=== PATIENT | female | born 1950 | race Caucasian/White ===

== ENCOUNTER → 2016-04-20 | Outpatient (CLI) | payer OTHER ==
--- NOTE | 2016-04-21 11:43 | MM ---
Reason for exam: screening (asymptomatic). Last mammogram was performed 1 year ago. History: Patient is postmenopausal and has history of other cancer at age 57. Family history of breast cancer in maternal grandmother, breast cancer in maternal cousin, and breast cancer in paternal grandmother. Benign stereotactic core biopsy of the right breast, June 22, 2001. Benign core biopsy of the right breast, 1969. Benign excisional biopsy of the right breast, 1969. Took estrogen for 1 year. Physical Findings: A clinical breast exam by your physician is recommended on an annual basis and results should be correlated with mammographic findings. MG 3D Screening Mammo W/Cad Bilateral CC and MLO view(s) were taken. Prior study comparison: April 20, 2015, bilateral MG screening mammo w CAD. October 18, 2013, bilateral MG screening mammo w CAD. The breast tissue is heterogeneously dense. This may lower the sensitivity of mammography. Previous mammotome biopsy in the right breast. No significant changes when compared with prior studies. ASSESSMENT: Benign, BI-RAD 2 RECOMMENDATION: Routine screening mammogram of both breasts in 1 year.
== END | disposition home or self-care (01) ==
LOC: RADMAMWWP 16:38
PROVIDERS: ATTEND Family Medicine
DX: Z12.31 Encounter for screening mammogram for malignant neoplasm of breast (principal)
CPT/HCPCS: 77063; G0202

== ENCOUNTER → 2017-05-22 | Outpatient (CLI) | payer MEDICARE, OTHER ==
--- NOTE | 2017-05-23 10:41 | MM ---
Reason for exam: screening (asymptomatic). Last mammogram was performed 1 year and 1 month ago. History: Patient is postmenopausal and has history of other cancer at age 57. Family history of breast cancer in maternal grandmother, breast cancer in maternal cousin, and breast cancer in paternal grandmother. Benign stereotactic core biopsy of the right breast, June 22, 2001. Benign core biopsy of the right breast, 1969. Benign excisional biopsy of the right breast, 1969. Took estrogen for 1 year. Physical Findings: A clinical breast exam by your physician is recommended on an annual basis and results should be correlated with mammographic findings. MG Screening Mammo w CAD Bilateral CC and MLO view(s) were taken. Prior study comparison: April 20, 2016, bilateral MG 3d screening mammo w/cad. April 20, 2015, bilateral MG screening mammo w CAD. The breast tissue is heterogeneously dense. This may lower the sensitivity of mammography. Focal asymmetry upper outer left breast 4 cm from nipple. This finding is changed when compared with previous exams. ASSESSMENT: Incomplete: need additional imaging evaluation, BI-RAD 0 RECOMMENDATION: Special view mammogram of the left breast. If lesion persists on supplemental views, image directed ultrasound is recommended. [facility] will attempt to contact patient to return for supplemental views and ultrasound if indicated.
== END | disposition home or self-care (01) ==
LOC: RADMAMWWP 11:01
PROVIDERS: ATTEND Family Medicine
DX: Z12.31 Encounter for screening mammogram for malignant neoplasm of breast (principal)
CPT/HCPCS: 77067

== ENCOUNTER → 2017-05-30 | Outpatient (CLI) | payer MEDICARE, OTHER ==
--- NOTE | 2017-05-30 10:21 | MM ---
Reason for exam: additional evaluation requested from abnormal screening. Last mammogram was performed less than 1 month ago. History: Patient is postmenopausal and has history of other cancer at age 57. Family history of breast cancer in maternal grandmother, breast cancer in maternal cousin, and breast cancer in paternal grandmother. Benign stereotactic core biopsy of the right breast, June 22, 2001. Benign core biopsy of the right breast, 1969. Benign excisional biopsy of the right breast, 1969. Took estrogen for 1 year. Physical Findings: Nurse did not find any significant physical abnormalities on exam. MG 3D Work Up W/Cad LT Spot compression CC, spot compression MLO, and ML view(s) were taken of the left breast. Prior study comparison: May 22, 2017, bilateral MG screening mammo w CAD. April 20, 2016, bilateral MG 3d screening mammo w/cad. Asymmetric breast tissue left upper outer aspect, stable. There is no discrete abnormality persists. These results were verbally communicated with the patient and result sheet given to the patient on 05/30/17. ASSESSMENT: Benign, BI-RAD 2 RECOMMENDATION: Return to routine screening mammogram schedule for both breasts.
== END | disposition home or self-care (01) ==
LOC: RADMAMWWP 09:23
PROVIDERS: ATTEND Family Medicine
DX: R92.8 Other abnormal and inconclusive findings on diagnostic imaging of breast (principal)
CPT/HCPCS: 77065; G0279

== ENCOUNTER → 2018-07-03 | Outpatient (CLI) | payer MEDICARE, OTHER ==
--- NOTE | 2018-07-03 14:32 | MM ---
Reason for exam: screening (asymptomatic). Last mammogram was performed 1 year and 1 month ago. History: Patient is postmenopausal and has history of other cancer at age 57. Family history of breast cancer in maternal grandmother, breast cancer in maternal cousin, and breast cancer in paternal grandmother. Benign stereotactic core biopsy of the right breast, June 22, 2001. Benign core biopsy of the right breast, 1969. Benign excisional biopsy of the right breast, 1969. Took estrogen for 1 year. Physical Findings: A clinical breast exam by your physician is recommended on an annual basis and results should be correlated with mammographic findings. MG 3D Screening Mammo W/Cad Bilateral CC and MLO view(s) were taken. Prior study comparison: May 30, 2017, left breast MG 3d work up w/cad LT. May 22, 2017, bilateral MG screening mammo w CAD. The breast tissue is heterogeneously dense. This may lower the sensitivity of mammography. No suspicious abnormality. Post biopsy change on the right with biopsy marker noted. No significant changes when compared with prior studies. ASSESSMENT: Benign, BI-RAD 2 RECOMMENDATION: Routine screening mammogram of both breasts in 1 year.
== END | disposition home or self-care (01) ==
LOC: RADMAMWWP 06:44
PROVIDERS: ATTEND Family Medicine
DX: Z12.31 Encounter for screening mammogram for malignant neoplasm of breast (principal)
CPT/HCPCS: 77063; 77067

== ENCOUNTER 2019-06-25 21:09 | Inpatient (IN) | payer MEDICARE, OTHER ==
[2019-06-25] MEDS ORDERED: ASPIRIN 81 MG PO STA (21:59)
[2019-06-25] MEDS ORDERED: NITROGLYCERIN SL TABS 0.4 MG TAB SUBLINGUAL PRN (21:59)
--- NOTE | 2019-06-25 22:05 | ED ---
General Adult HPI - General Chief complaint: Shortness of Breath Stated complaint: SOB, fatigue Time Seen by Provider: 06/25/19 21:11 Source: patient, RN/MD, EMS, RN notes reviewed, old records reviewed (Reviewed reports and records from [facility]) Mode of arrival: EMS Limitations: no limitations - History of Present Illness Initial comments: Patient is a pleasant [age]-year-old female presenting to emergency Department as a transfer from [facility]. Patient has had exertional dyspnea over the past 1-2 months. Patient is symptom-free at rest. Patient has mild chest tightness associated with her exertional dyspnea. Patient states she started becoming short of breath as soon as 10 feet. Patient states she becomes very fatigued and achy. No history of similar symptoms previously. Patient was diagnosed with pneumonia around a month ago however no improvement with treatment. - Related Data Allergies Allergy/AdvReac Type Severity Reaction Status Date / Time No Known Allergies Allergy Verified 06/25/19 21:21 Review of Systems ROS Statement: Those systems with pertinent positive or pertinent negative responses have been documented in the HPI. ROS Other: All systems not noted in ROS Statement are negative. Constitutional: Denies: fever Eyes: Denies: eye pain ENT: Denies: ear pain Respiratory: Reports: as per HPI, dyspnea. Denies: cough Cardiovascular: Reports: as per HPI, chest pain Endocrine: Reports: fatigue Gastrointestinal: Denies: abdominal pain Genitourinary: Denies: dysuria Musculoskeletal: Denies: back pain Skin: Denies: rash Neurological: Denies: weakness Past Medical History Past Medical History: Hyperlipidemia, Thyroid Disorder History of Any Multi-Drug Resistant Organisms: None Reported Past Surgical History: Joint Replacement, Orthopedic Surgery Additional Past Surgical History / Comment(s): cervical fusions, total right knee replacement. Past Psychological History: No Psychological Hx Reported Smoking Status: Never smoker Past Alcohol Use History: Occasional Past Drug Use History: None Reported General Exam Limitations: no limitations General appearance: alert, in no apparent distress Head exam: Present: normocephalic Eye exam: Present: normal appearance ENT exam: Present: normal oropharynx Neck exam: Present: normal inspection Respiratory exam: Present: normal lung sounds bilaterally. Absent: respiratory distress, wheezes, rales, rhonchi, stridor, chest wall tenderness Cardiovascular Exam: Present: regular rate, normal rhythm Expanded Peripheral pulses: 2+: Radial (R), Radial (L), Dorsalis Pedis (R), Dorsalis Pedis (L) GI/Abdominal exam: Present: soft. Absent: distended, tenderness Extremities exam: Present: normal inspection. Absent: pedal edema, calf tenderness Neurological exam: Present: alert Psychiatric exam: Present: normal affect, normal mood Skin exam: Present: normal color Course Vital Signs 06/25/19 21:11 Temperature 98.4 F Pulse Rate 67 Respiratory 17 Rate Blood Pressure 149/90 O2 Sat by Pulse 98 Oximetry Medical Decision Making - Medical Decision Making Patient is made aware of results and plan. Case discussed with practitioner Yesi covered with Dr. Marinelli, covering for Dr. Naik, who admits for Dr. Anne. He will admit. Consult placed for cardiology and pulmonary. Echo ordered. Disposition Clinical Impression: Exertional dyspnea Disposition: ADMITTED IP TO THIS HOSP Is patient prescribed a controlled substance at d/c from ED?: No Referrals: Jeff Anne MD [Primary Care Provider] - 1-2 days Decision Time: 22:05
[2019-06-26 06:35] LABS: Cholesterol 156 mg/dL (<200); HDL Cholesterol 53 mg/dL (40-60); LDL Cholesterol,Calculated 90 mg/dL (0-99); Triglycerides 65 mg/dL (<150)
[2019-06-26] MEDS: ASPIRIN 325 MG TAB PO SCH (09:35)
--- NOTE | 2019-06-26 11:46 | P.CNPUL ---
History of Present Illness Consult date: 06/26/19 Reason for consult: dyspnea History of present illness: This is a 69-year-old female patient got transferred from [facility] cause of ongoing shortness of breath is been going on since April 2019. The patient has multiple complaints in addition to shortness of breath. She has limited cough.Can sputum production. She is feeling weak and fatigued and tired. He is having some occasional dizziness and lightheadedness. She also having headaches. Denied having any angina. No pleurisy. No hemoptysis. No nausea. No vomiting. No fever or chills. She was in the hospital back in April 2019 which she was checked for covid 19 and the results came back negative. The patient lives with her and she is considered to be a low- risk for this type of infection. A repeat study was done. She has history of hypothyroidism, hyperlipidemia, hypertension, chronic fatigue, depression, prolapsed bladder, hyperlipidemia, and she is a lifetime nonsmoker. No previous history of DVT. No previous history of pulmonary embolism. Her current investigation included a CRP that was less than 5, white cell count of 9.1, hemoglobin of 14.2, platelets of 276, CPK of 68, sodium of 140, potassium of 4.8, serum bicarb of 25, BUN of 15 and a creatinine of 0.9. Her LFTs are within normal limits. Coagulation profile is within normal limits. Lactic acid level at the time of admission was 2.3. ProBNP level was 121. D- dimer was 1.27 and based on that the patient was given a CT angiogram that showed no evidence of any central pulmonary embolism. Subsegmental branches were not adequately visualized. Lung parenchyma was within normal limits. Chest x-ray was within normal limits. The patient's EKG is also within normal limits. Review of Systems Constitutional: Reports fatigue, Reports weakness Eyes: denies as per HPI, denies blurred vision, denies bulging eye, denies decreased vision, denies diplopia, denies discharge, denies dry eye, denies irritation, denies itching, denies pain, denies photophobia, denies loss of peripheral vision, denies loss of vision, denies tunnel vision/blind spots Ears: deny: decreased hearing, ear discharge, earache, tinnitus Ears, nose, mouth and throat: Denies headache, Denies sore throat Breasts: right: as per HPI Cardiovascular: Reports decreased exercise tolerance, Reports dyspnea on exertion Respiratory: Reports cough, Reports dyspnea Gastrointestinal: Reports as per HPI Genitourinary: Reports as per HPI Menstruation: Reports as per HPI Musculoskeletal: Reports as per HPI Musculoskeletal: absent: ankle pain, ankle stiffness, ankle swelling Integumentary: Reports as per HPI Neurological: Reports as per HPI Psychiatric: Reports as per HPI Endocrine: Reports as per HPI Hematologic/Lymphatic: Reports as per HPI Allergic/Immunologic: Reports as per HPI Past Medical History Past Medical History: Hyperlipidemia, Thyroid Disorder Additional Past Medical History / Comment(s): Past medical history positive for chronic back pain, hypothyroidism, hyperlipidemia, hypertension, chronic fatigue, depression, bladder prolapse History of Any Multi-Drug Resistant Organisms: None Reported Past Surgical History: Appendectomy, Joint Replacement, Orthopedic Surgery, Tonsillectomy Additional Past Surgical History / Comment(s): cervical fusions, total right knee replacement. Past Psychological History: No Psychological Hx Reported Smoking Status: Never smoker Past Alcohol Use History: Occasional Past Drug Use History: None Reported - Past Family History Father Additional Family Medical History / Comment(s): at 90 Mother Family Medical History: Hypertension Additional Family Medical History / Comment(s): at 41 Medications and Allergies Home Medications Medication Instructions Recorded Confirmed Type Albuterol Inhaler [Ventolin Hfa 1 puff INHALATION RT-Q4H PRN 06/25/19 06/25/19 History Inhaler] Atorvastatin [Lipitor] 20 mg PO DAILY 06/25/19 06/25/19 History Eye [place] Advantage W/Vitamin D3 1 cap PO DAILY 06/25/19 06/25/19 History Lidocaine 5% Patch [Lidoderm] 1 patch TOPICAL DAILY PRN 06/25/19 06/25/19 History Omeprazole 20 mg PO DAILY 06/25/19 06/25/19 History Oxybutynin ER [Ditropan Xl] 10 mg PO HS 06/25/19 06/25/19 History Thyroid,Pork [Skiver Counter Thyroid 120] 120 mg PO DAILY 06/25/19 06/25/19 History Allergies Allergy/AdvReac Type Severity Reaction Status Date / Time prednisone AdvReac PANCREATITI Verified 06/25/19 22:17 S STEROIDS AdvReac PANCREATITI Uncoded 06/25/19 22:17 S Physical Exam Vitals: Vital Signs Temp Pulse Pulse Resp BP BP Pulse Ox 06/26/19 08:00 98 F 84 18 98/57 98 06/26/19 04:00 68 18 111/65 97 06/26/19 00:11 97.6 F 06/26/19 00:06 75 18 127/74 97 06/26/19 00:00 97.9 F 71 18 144/69 97 06/25/19 23:00 97.9 F 06/25/19 22:00 85 16 138/94 96 06/25/19 21:11 98.4 F 67 17 149/90 98 Intake and Output 06/25/19 06/26/19 06/26/19 22:59 06:59 14:59 Other: Voiding Method Toilet Toilet # Voids 1 Weight 99.79 kg 99.79 kg The patient appeared well nourished and normally developed. Vital signs as documented. Head exam is unremarkable. No scleral icterus or corneal arcus noted. Neck is without jugular venous distension, thyromegaly, or carotid bruits. Carotid upstrokes are brisk bilaterally. Lungs are clear to auscultation and percussion. Cardiac exam reveals the PMI to be normally sized and situated. Rhythm is regular. First and second heart sounds normal. No murmurs, rubs or gallops. Abdominal exam reveals normal bowel sounds, no masses, no organomegaly and no aortic enlargement. Extremities are nonedematous and both femoral and pedal pulses are normal.Examination of the skin revealed no evidence of significant rashes, suspicious appearing nevi or other concerning lesions. Neurologically awake and alert and there is no focal neurological deficit. Results - Diagnostic Findings Chest x-ray: image reviewed CT scan - chest: image reviewed Assessment and Plan Plan: 1 exertional dyspnea and addition to a combination of other nonspecific symptoms. The exact etiology is not clear. D-dimer was slightly elevated. Nevertheless the computed tomography scan of the chest showed no evidence of any pulmonary embolism at least in the central pulmonary artery branches and the rest of the lung parenchyma was within normal limits. EKG, cardiac enzymes and the rest of the blood work is also within normal limits. Covid 19 evaluation that was done back in April 2019 was within normal limits. Awaiting a repeat evaluation. 2 hypothyroidism 3 hyperlipidemia 4 hypertension 5 chronic fatigue 6 chronic back pain Plan Check Dopplers of the lower extremities Check thyroid function tests Echocardiogram Cardiology consultation We'll follow
--- NOTE | 2019-06-26 12:10 | CONS ---
CONSULTATION CHIEF COMPLAINT: Shortness of breath. Zee is a 69-year-old lady with history of hypothyroidism and dyslipidemia who presented to hospital complaining of shortness of breath for the past 1 to 2 months. IT comes on with exertion and is associated with mild chest tightness. Recently, she has been becoming short of breath even with much slower activity. At the time of my evaluation this morning, she appears comfortable at rest and is free of symptoms. Her lipids are well controlled. I do not have any other labs here. An EKG shows sinus rhythm with nonspecific ST-T wave changes. PAST MEDICAL HISTORY: Significant for hypertension, dyslipidemia, hypothyroidism. MEDICATIONS: Include Synthroid, Ditropan, , Lipitor and albuterol. Allergic to PREDNISONE and STEROIDS. FAMILY HISTORY: Negative for premature coronary artery disease. SOCIAL HISTORY: Negative for smoking, EtOH abuse or drug abuse. REVIEW OF SYSTEMS: HEENT: Unremarkable. CARDIAC: As described above. RESPIRATORY: As described above. GI: Negative. GENITOURINARY: Negative. ALLERGY/IMMUNOLOGY: Negative. SKIN: Negative. MUSCULOSKELETAL: Significant for arthritis. PSYCHOSOCIAL: Negative: DERMATOLOGICAL Negative. ONCOLOGICAL: Negative. COLLET DRILLER: Negative. Rest of the system review is not relevant. PHYSICAL EXAM: Comfortable at rest. Vital signs are stable. There is no jugular venous distention. Carotid upstroke is normal. There is no bruit. Chest exam reveals good air entry bilaterally. Heart exam reveals first and second heart sounds. No gallop. No murmur. No rub. Abdomen is soft, nontender. Exam of extremities did not reveal any edema. Peripheral pulses are felt. ASSESSMENT: 1. Shortness of breath, rule out cardiac causes. 2. Dyslipidemia. PLAN: So far, patient is pain free, hemodynamically stable. EKG does not reveal acute ischemic changes. I will thus obtain a stress test on her tomorrow. If this is abnormal, she will need a cardiac catheterization, If not, she will be discharged home. MMODL / IJN: [id number] /
[2019-06-26] MEDS ORDERED: REGADENOSON 0.4 MG/5 ML SYRINGE IV ONE (13:20)
[2019-06-26] MEDS ORDERED: AMINOPHYLLINE 500 MG/20 ML VIAL IV ONE (13:20)
--- NOTE | 2019-06-26 15:49 | NM ---
EXAMINATION TYPE: NM stress lexiscan cardiolite DATE OF EXAM: 06/26/2019 COMPARISON: NONE HISTORY: Chest pain TECHNIQUE: After the intravenous administration of 9.7 mCi Tc 99m Sestamibi - Cardiolite resting SPE CT images acquired 60 minutes post injection. The patient received 0.4mg Lexiscan, 24.3 mCi Tc 99m Sestamibi - Stress images obtained [address] injection FINDINGS: No fixed or reversible perfusion defects are evident. Gated wall motion is normal. Ejection fraction is 63%. On Polar maps there is a defect. However, this is likely related to some epigastric artifact present. The [id number]. IMPRESSION: 1. No definite stress-induced ischemic change. Correlate with EKG changes.
[2019-06-26 16:20] VITALS: TEMP 98
--- NOTE | 2019-06-26 16:30 | US ---
EXAMINATION TYPE: US venous doppler duplex LE DATE OF EXAM: 06/26/2019 3:56 PM COMPARISON: NONE CLINICAL HISTORY: rule out dvt. elevated D-Dimer, SOB SIDE PERFORMED: bilateral TECHNIQUE: The lower extremity deep venous system is examined utilizing real time linear array sonog ella with graded compression, doppler sonography and color-flow sonography. VESSELS IMAGED: External Iliac Vein (EIV) Common Femoral Vein Deep Femoral Vein Greater Saphenous Vein * Femoral Vein Popliteal Vein Small Saphenous Vein * Proximal Calf Veins (* superficial vessels) Right Leg: No evidence of DVT Left Leg: No evidence of DVT IMPRESSION: 1. Bilateral lower extremity ultrasound negative for deep venous thrombosis.
[2019-06-26] MEDS ORDERED: LIDOCAINE 5% PATCH TOPICAL PRN (20:18)
[2019-06-26] MEDS ORDERED: ALBUTEROL NEBULIZED 2.5 MG/3 ML INHALATION PRN (20:18)
--- NOTE | 2019-06-26 20:34 | P.HPIM ---
History of Present Illness H&P Date: 06/26/19 Chief Complaint: Exertional short of breath Patient is a 69-year-old male with a known history of hyperlipidemia, hypothyroidism, osteoarthritis and no prior history of smoking initially presented to [facility] with complaints of shortness of breath and exer tional dyspnea not getting better for the past 2 months. Patient states that she was diagnosed with bronchitis about 2 months ago and was placed on antibiotics and steroid course. Patient symptoms has not been getting better. COVID 19 test was done which was negative. Patient was again placed on antibiotic course for possible pneumonia in the form of Levaquin. Patient has not been going out during the pandemic. Since her symptoms not getting better she presented initially to [facility]. Patient had chest x-ray done which was negative. D-dimer was elevated and CT angiogram was done which showed no evidence of pulmonary embolism. Patient was also found to have elevated lactic acid level which is improved. Patient does have cough without production of sputum. Patient feels generally weak and tired. No complaints of headache. Occasional dizziness. No complaints of chest pain. No hematemesis or melena. Denied any dysuria or hematuria. No nausea vomiting or abdominal pain.Denied any leg swelling. No recent travel or sick contacts. Laboratory data reviewed from [facility] showed WBC count 9.1, hemoglobin 14.2, platelets 276, CPK 68, sodium 140, potassium 4.6, bicarb 25 BUN 15 and creatinine 0.9 LFTs within normal limits. CRP was not elevated less than 5 lactic acid was 2.3 proBNP 121 and d-dimer 1.27 EKG showed normal sinus rhythm. Patient was transferred to [facility] for further evaluation by pulmonary and cardiology. Review of Systems Constitutional: Patient denies any fever or chills . No generalized weakness or weight loss. Abdomen: Patient denied nausea vomiting and diarrhea and abdominal pain. Cardiovascular: Patient denies any chest pain or short of breath no palpitations.Exertional short of breath. Respiratory: patient denied any cough is from production. No shortness of breath Neurologic: Patient denied any numbness or tingling. Musculoskeletal: Patient denies any complaints of joint swelling or deformity. Skin: Negative Psychiatric: Negative Endocrine: No heat or cold intolerance. No recent weight gain. Genitourinary: No dysuria or hematuria. All other 14 point ROS negative except the above Past Medical History Past Medical History: Hyperlipidemia, Thyroid Disorder History of Any Multi-Drug Resistant Organisms: None Reported Past Surgical History: Joint Replacement, Orthopedic Surgery Additional Past Surgical History / Comment(s): cervical fusions, total right knee replacement. Past Psychological History: No Psychological Hx Reported Smoking Status: Never smoker Past Alcohol Use History: Occasional Past Drug Use History: None Reported - Past Family History Father Additional Family Medical History / Comment(s): at 90 Mother Family Medical History: Hypertension Additional Family Medical History / Comment(s): at 41 Medications and Allergies Home Medications Medication Instructions Recorded Confirmed Type Albuterol Inhaler [Ventolin Hfa 1 puff INHALATION RT-Q4H PRN 06/25/19 06/25/19 History Inhaler] Atorvastatin [Lipitor] 20 mg PO DAILY 06/25/19 06/25/19 History [place] Advantage W/Vitamin D3 1 cap PO DAILY 06/25/19 06/25/19 History Lidocaine 5% Patch [Lidoderm] 1 patch TOPICAL DAILY PRN 06/25/19 06/25/19 History Omeprazole 20 mg PO DAILY 06/25/19 06/25/19 History Oxybutynin ER [Ditropan Xl] 10 mg PO HS 06/25/19 06/25/19 History Thyroid,Pork [Halver Machine Operator Thyroid 120] 120 mg PO DAILY 06/25/19 06/25/19 History Allergies Allergy/AdvReac Type Severity Reaction Status Date / Time prednisone AdvReac PANCREATITI Verified 06/25/19 22:17 S STEROIDS AdvReac PANCREATITI Uncoded 06/25/19 22:17 S Physical Exam Vitals: Vital Signs Temp Pulse Pulse Resp BP BP Pulse Ox 06/26/19 08:00 98 F 84 18 98/57 98 06/26/19 04:00 68 18 111/65 97 06/26/19 00:11 97.6 F 06/26/19 00:06 75 18 127/74 97 06/26/19 00:00 97.9 F 71 18 144/69 97 06/25/19 23:00 97.9 F 06/25/19 22:00 85 16 138/94 96 06/25/19 21:11 98.4 F 67 17 149/90 98 Intake and Output 06/25/19 06/26/19 06/26/19 22:59 06:59 14:59 Other: Voiding Method Toilet Toilet # Voids 1 Weight 99.79 kg 99.79 kg PHYSICAL EXAMINATION: Patient is lying in the bed comfortably, no acute distress, awake alert and oriented.. HEENT: Normocephalic. Neck is supple. Pupils reactive. Nostrils clear. Oral cavity is moist. Ears reveal no drainage. Neck reveals no JVD, carotid bruits, or thyromegaly. CHEST EXAMINATION: Trachea is central. Symmetrical expansion. Lung mccurdy clear to auscultation and percussion. CARDIAC: Normal S1, S2 with no gallops. No murmurs ABDOMEN: Soft. Bowel sounds normal. No organomegaly. No abdominal bruits. Extremities: reveal no edema. No clubbing or cyanosis Neurologically awake, alert, oriented x3 with well-coordinated movements. No focal deficits noted Skin: No rash or skin lesions. Psychiatric: Coperative. Nonsuicidal Musculoskeletal: No joint swelling or deformity. Normal range of motion. Thrombosis Risk Factor Assmnt - DVT/VTE Prophylaxis DVT/VTE Prophylaxis: Pharmacologic Prophylaxis ordered - Choose All That Apply Each Risk Factor Represents 2 Points: Age 61-74 years Thrombosis Risk Factor Assessment Total Risk Factor Score: 2 Thrombosis Risk Factor Assessment Level: Low Risk Assessment and Plan Assessment: Exertional short of breath. Etiology unclear at this time. Rule out cardiac and pulmonary causes. CT angiogram is negative for pulmonary embolism. Troponin x3-. Cardiology is planning for stress test today. Patient does not have any wheezing or previous history of smoking. Will check TSH level. Hypothyroidism Hyperlipidemia Hypertension Chronic back pain Osteoarthritis DVT prophylaxis heparin subcu Plan: Patient will be continued on telemetry monitoring. Breathing treatments as needed. Lower extremity duplex scan is negative for DVT. Stress echocardiogram was ordered. Cardiology and pulmonary following. Follow-up TSH level. Hem oglobin within normal limits. Further recommendations based on clinical course. Time with Patient: Greater than 30
[2019-06-26] MEDS ORDERED: ACETAMINOPHEN TAB 325 MG TAB PO PRN (20:52)
[2019-06-26] MEDS ORDERED: OXYBUTYNIN 10 MG TAB.ER.24 PO SCH (21:00)
[2019-06-26] MEDS: HEPARIN SODIUM,PORCINE 5,000 UNIT/ML 1 ML VIAL SQ SCH (23:03)
[2019-06-27] MEDS ORDERED: ALBUTEROL HFA INHALER INHALATION PRN (00:38)
[2019-06-27 07:35] LABS: Basophils % (A) 1 %; Eosinophils # (A) 0.2 k/uL (0-0.7); Eosinophils % (A) 3 %; HCT 41.4 % (34.0-46.0); HGB 13.2 gm/dL (11.4-16.0); Lymphocytes # (A) 1.9 k/uL (1.0-4.8); Lymphocytes % (A) 29 %; MCH 29.6 pg (25.0-35.0); MCHC 31.9 g/dL (31.0-37.0); MCV 92.8 fL (80.0-100.0); Mean Platelet Volume 8.9; Monocytes # (A) 0.4 k/uL (0-1.0); Monocytes % (A) 6 %; Neutrophils # (A) 3.8 k/uL (1.3-7.7); Neutrophils % (A) 58 %; Platelet Count 254 k/uL (150-450); RBC 4.46 m/uL (3.80-5.40); RDW 12.7 % (11.5-15.5); WBC 6.4 k/uL (3.8-10.6)
[2019-06-27 07:45] LABS: ALT 23 U/L (4-34); AST 25 U/L (14-36); African American GFR (CKD) >90 (>60 ml/min/1.73 sqM); Albumin 3.7 g/dL (3.5-5.0); Alkaline Phosphatase 54 U/L (38-126); Anion Gap 4 mmol/L; Blood Urea Nitrogen 14 mg/dL (7-17); Calcium 9.2 mg/dL (8.4-10.2); Carbon Dioxide 24 mmol/L (22-30); Chloride 110 mmol/L (98-107); Glucose 96 mg/dL (74-99); Non-African American GFR(CKD) 82 (>60 ml/min/1.73 sqM); Potassium 4.1 mmol/L (3.5-5.1); Sodium 138 mmol/L (137-145); Total Bilirubin 0.7 mg/dL (0.2-1.3); Total Protein 6.5 g/dL (6.3-8.2)
--- NOTE | 2019-06-27 08:19 | ECHOF ---
Referral Reason:shortness of breath, pt is being rule out for COVI MEASUREMENTS -------- HEIGHT: 165.1 cm WEIGHT: 99.8 kg BP: 111/65 RVIDd: 3.0 cm (< 3.3) IVSd: 1.1 cm (0.6 - 1.1) LVIDd: 4.2 cm (3.9 - 5.3) LVPWd: 1.2 cm (0.6 - 1.1) IVSs: 1.6 cm LVIDs: 2.1 cm LVPWs: 1.7 cm Ao Diam: 2.9 cm (2.0 - 3.7) AV Cusp: 2.0 cm (1.5 - 2.6) LA Diam: 2.5 cm (2.7 - 3.8) MV EXCURSION: 20.130 mm (> 18.000) MV EF SLOPE: 100 mm/s (70 - 150) EPSS: 0.3 cm MV E Blas: 0.67 m/s MV DecT: 191 ms MV A Blas: 0.76 m/s MV E/A Ratio: 0.88 AR PHT: 643 ms RAP: 5.00 mmHg RVSP: 26.87 mmHg FINDINGS -------- Sinus rhythm. This was a technically adequate study. The left ventricular size is normal. There is mild concentric left ventricular hypertrophy. Overa ll left ventricular systolic function is normal with, an EF between 55 - 60 %. The right ventricle is normal in size. The left atrial size is normal. The right atrial size is normal. The aortic valve is trileaflet and appears structurally normal. Trace amount of aortic regurgitatio n. The mitral valve is normal. Mild mitral regurgitation is present. The tricuspid valve appears structurally normal. Mild tricuspid regurgitation present. Right vent ricular systolic pressure is normal at < 35 mmHg. There is no pulmonic regurgitation present. The aortic root size is normal. Normal inferior vena cava with normal inspiratory collapse consistent with estimated right atrial pre ssure of 5 mmHg. There is no pericardial effusion. CONCLUSIONS -------- 1. Sinus rhythm. 2. This was a technically adequate study. 3. The left ventricular size is normal. 4. There is mild concentric left ventricular hypertrophy. 5. Overall left ventricular systolic function is normal with, an EF between 55 - 60 %. 6. The right ventricle is normal in size. 7. The left atrial size is normal. 8. The right atrial size is normal. 9. The aortic valve is trileaflet and appears structurally normal. 10. Trace amount of aortic regurgitation. 11. The mitral valve is normal. 12. Mild mitral regurgitation is present. 13. The tricuspid valve appears structurally normal. 14. Mild tricuspid regurgitation present. 15. Right ventricular systolic pressure is normal at < 35 mmHg. 16. There is no pulmonic regurgitation present. 17. The aortic root size is normal. 18. Normal inferior vena cava with normal inspiratory collapse consistent with estimated right atrial pressure of 5 mmHg. 19. There is no pericardial effusion. [employer] ASSEMBLER: Ellen Tomlinson RDCS
[2019-06-27] MEDS: ASPIRIN 325 MG TAB PO SCH (08:35)
[2019-06-27] MEDS: HEPARIN SODIUM,PORCINE 5,000 UNIT/ML 1 ML VIAL SQ SCH (08:36)
[2019-06-27 08:54] VITALS: RESP 16
[2019-06-27] MEDS ORDERED: ATORVASTATIN 20 MG TAB PO SCH (09:00)
[2019-06-27] MEDS ORDERED: THYROID, PORK 30 MG TAB PO SCH (09:00)
--- NOTE | 2019-06-27 09:28 | EST ---
EXERCISE STRESS DATE OF SERVICE: 06/26/19 AGE: 69 SEX: F HT: 5'5" WT: 220 lbs. PROTOCOL: Lexiscan STAGE: DURATION OF EXERCISE: HEART RATE REST: 77 BLOOD PRESSURE REST: 143/85 MAXIMUM HEART RATE ACHIEVED: 135 MAXIMUM BLOOD PRESSURE: 165/98 85% MPHR: 130 100% MPHR: 153 METS: INDICATIONS: Chest pressure CLINICAL INFORMATION: Baseline EKG revealed normal sinus rhythm without significant ST-T changes. With Lexiscan administration patient had transient shortness of breath and headache. Heart rate changed from 77-122 beats per minute blood pressure changed from 143/85 to 152/90. EKG remained unremarkable. Patient did not have any angina or arrhythmia. By EKG criteria, this is an unremarkable Lexiscan stress test. The nuclear scan results which are more pertinent will be reported by the radiologist. DEANNA / NATACHAN: [id number] /
--- NOTE | 2019-06-27 11:38 | P.PN ---
Subjective Progress Note Date: 06/27/19 Principal diagnosis: Dyspnea This is a 69-year-old female patient got transferred from [facility] cause of ongoing shortness of breath is been going on since April 2019. The patient has multiple complaints in addition to shortness of breath. She has limited cough.Can sputum production. She is feeling weak and fatigued and tired. He is having some occasional dizziness and lightheadedness. She also having headaches. Denied having any angina. No pleurisy. No hemoptysis. No nausea. No vomiting. No fever or chills. She was in the hospital back in April 2019 which she was checked for covid 19 and the results came back negative. The patient lives with her and she is considered to be a low- risk for this type of infection. A repeat study was done. She has history of hypothyroidism, hyperlipidemia, hypertension, chronic fatigue, depression, prolapsed bladder, hyperlipidemia, and she is a lifetime nonsmoker. No previous history of DVT. No previous history of pulmonary embolism. Her current investigation included a CRP that was less than 5, white cell count of 9.1, hemoglobin of 14.2, platelets of 276, CPK of 68, sodium of 140, potassium of 4.8, serum bicarb of 25, BUN of 15 and a creatinine of 0.9. Her LFTs are within normal limits. Coagulation profile is within normal limits. Lactic acid level at the time of admission was 2.3. ProBNP level was 121. D- dimer was 1.27 and based on that the patient was given a CT angiogram that aniceto wed no evidence of any central pulmonary embolism. Subsegmental branches were not adequately visualized. Lung parenchyma was within normal limits. Chest x- ray was within normal limits. The patient's EKG is also within normal limits. On 06/27/2019 patient seen in follow-up on selective care unit, patient had a Lexiscan stress test today which was negative, Dopplers of lower extremities were negative for DVT. Vital signs are stable, room air pulse ox is 95%, patient is still does complain of exertional dyspnea, seems quite comfortable at rest, lung sounds are clear on today's exam, patient is afebrile, hemodynamically stable, so far patient has had extensive workup which has been negative. Echocardiogram revealed preserved left ventricular systolic function with EF of 55-60%, mild mitral regurg, mild tricuspid regurg, no evidence of pulmonary hypertension. Today's labs have been reviewed, CBC is within normal limits, electrolytes and renal profile, LFTs unremarkable, 2 sets of troponins were negative, coronavirus PCR was negative. Chest x-ray was within normal limits, EKG was normal, CTA chest showed no evidence of any central pulmonary embolism, and no parenchymal abnormalities. No acute events overnight, patient has been cleared for discharge by cardiology, from pulmonary perspective patient is clear for discharge as well Objective - Vital Signs Vital signs: Vital Signs Temp 98 F 06/27/19 08:00 Pulse 92 06/27/19 08:00 Resp 16 06/27/19 08:00 BP 114/68 06/27/19 08:00 Pulse Ox 95 06/27/19 08:00 Intake & Output 06/26/19 06/27/19 06/27/19 18:59 06:59 18:59 Intake Total 236 300 Balance 236 300 Weight 99.79 kg 104.6 kg Intake: Oral 236 300 Other: Voiding Method Toilet Toilet Toilet # Voids 2 1 - Exam GENERAL EXAM: Alert, very pleasant, 69-year-old white female, on room air the pulse ox of 95% comfortable in no apparent distress. HEAD: Normocephalic/atraumatic. EYES: Normal reaction of pupils, equal size. Conjunctiva pink, sclera white. NOSE: Clear with pink turbinates. THROAT: No erythema or exudates. NECK: No masses, no JVD, no thyroid enlargement, no adenopathy. CHEST: No chest wall deformity. Symmetrical expansion. LUNGS: Equal air entry with no crackles, wheeze, rhonchi or dullness. CVS: Regular rate and rhythm, normal S1 and S2, no gallops, no murmurs, no rubs ABDOMEN: Soft, nontender. No hepatosplenomegaly, normal bowel sounds, no guarding or rigidity. EXTREMITIES: No clubbing, no edema, no cyanosis, 2+ pulses and upper and lower extremities. MUSCULOSKELETAL: Muscle strength and tone normal. SPINE: No scoliosis or deformity SKIN: No rashes CENTRAL NERVOUS SYSTEM: Alert and oriented -3. No focal deficits, tone is normal in all 4 extremities. PSYCHIATRIC: Alert and oriented -3. Appropriate affect. Intact judgment and insight. - Labs CBC & Chem 7: 06/27/19 07:09 06/27/19 07:09 Labs: Abnormal Lab Results - Last 24 Hours (Table) 06/27/19 Range/Units 07:09 Chloride 110 H (98-107) mmol/L Assessment and Plan Plan: Assessment: 1 exertional dyspnea and addition to a combination of other nonspecific symptoms. The exact etiology is not clear. D-dimer was slightly elevated. Nevertheless the computed tomography scan of the chest showed no evidence of any pulmonary embolism at least in the central pulmonary artery branches and the res t of the lung parenchyma was within normal limits. EKG, cardiac enzymes and the rest of the blood work is also within normal limits. Covid 19 evaluation that was done back in April 2019 was within normal limits. Coronary virus PCR completed on 06/25/2019 was negative. Echocardiogram showed preserved left ventricular systolic function, no valve abnormality, no evidence of pulmonary hypertension, Lexiscan stress test was normal, EKG was within normal limits, cardiac enzymes were negative 2 at this hospital. Lower extremity Dopplers were negative 2 hypothyroidism 3 hyperlipidemia 4 hypertension 5 chronic fatigue 6 chronic back pain Plan: From pulmonary perspective patient is stable for discharge home today, she has had an extensive workup in regards to exertional dyspnea, CTA chest was negative for any PE, or any evidence of parenchymal abnormality, chest x-ray was normal, patient is on room air, no fever or chills, vital signs are stable, she had the negative Lexiscan stress test today, echocardiogram was within normal limits, her coronavirus PCR test was negative. Lower extremity Dopplers were negative, patient can follow-up in the office for outpatient PFT with Dr. Ornelas in 2-3 weeks I performed a history & physical examination of the patient and discussed their management with my nurse practitioner, Giselle Diallo. I reviewed the nurse practitioner's note and agree with the documented findings and plan of care. Lung sounds are positive for clear breath sounds. The findings and the impression was discussed with the patient. I attest to the documentation by the nurse practitioner. Time with Patient: Less than 30
[2019-06-27 12:26] VITALS: BP 126/74; PULSE 79
--- NOTE | 2019-06-27 14:09 | P.PN ---
Subjective Progress Note Date: 06/27/19 This is a 69-year-old female who was initially transferred here from [facility], she presented there with symptoms of progressively worsening shortness of breath which had been going on since April. Patient also complained of cough with sputum production, occasional dizziness lightheadedness and headaches. Patient does have history of hypothyroidism, hyperlipidemia, hypertension, chronic fatigue, depression, prolapsed bladder, hyperlipidemia, she is a lifelong nonsmoker. She was seen and examined on the telemetry unit today, she underwent a Persantine stress test which was negative for any reversible ischemia, the Dopplers of the lower extremities were negative for DVT. Vital signs were stable, at the time of my examination the patient was quite comfortable at rest. Hemodynamically stable. Her echocardiogram with Doppler study revealed a preserved left ventricular systolic function with mild MR, mild TR, no evidence of pulmonary hypertension. Her labs from today were reviewed. CTA of the chest did not reveal any evidence for a pulmonary embolism. From our perspective the patient may be able to be discharged home once cleared by primary doctor. Objective - Vital Signs Vital signs: Vital Signs Temp 98 F 06/27/19 12:00 Pulse 79 06/27/19 12:00 Resp 16 06/27/19 12:00 BP 126/74 06/27/19 12:00 Pulse Ox 96 06/27/19 12:00 Intake & Output 06/26/19 06/27/19 06/27/19 18:59 06:59 18:59 Intake Total 236 300 Balance 236 300 Weight 99.79 kg 104.6 kg Intake: Oral 236 300 Other: Voiding Method Toilet Toilet Toilet # Voids 2 1 - Exam GENERAL EXAM: Alert, very pleasant, 69-year-old white female, on room air the pulse ox of 95% comfortable in no apparent distress. HEAD: Normocephalic/atraumatic. EYES: Normal reaction of pupils, equal size. Conjunctiva pink, sclera white. NOSE: Clear with pink turbinates. THROAT: No erythema or exudates. NECK: No masses, no JVD, no thyroid enlargement, no adenopathy. CHEST: No chest wall deformity. Symmetrical expansion. LUNGS: Equal air entry with no crackles, wheeze, rhonchi or dullness. CVS: Regular rate and rhythm, normal S1 and S2, no gallops, no murmurs, no rubs ABDOMEN: Soft, nontender. No hepatosplenomegaly, normal bowel sounds, no guarding or rigidity. EXTREMITIES: No clubbing, no edema, no cyanosis, 2+ pulses and upper and lower extremities. MUSCULOSKELETAL: Muscle strength and tone normal. SPINE: No scoliosis or deformity SKIN: No rashes CENTRAL NERVOUS SYSTEM: Alert and oriented -3. No focal deficits, tone is normal in all 4 extremities. PSYCHIATRIC: Alert and oriented -3. Appropriate affect. Intact judgment and insight. - Labs CBC & Chem 7: 06/27/19 07:09 06/27/19 07:09 Labs: Abnormal Lab Results - Last 24 Hours (Table) 06/27/19 Range/Units 07:09 Chloride 110 H (98-107) mmol/L Assessment and Plan Plan: Assessment and plan: 1 exertional dyspnea and addition to a combination of other nonspecific symptoms. The exact etiology is not clear. D-dimer was slightly elevated. Nevertheless the computed tomography scan of the chest showed no evidence of any pulmonary embolism at least in the central pulmonary artery branches and the rest of the lung parenchyma was within normal limits. EKG, cardiac enzymes and the rest of the blood work is also within normal limits. Covid 19 evaluation that was done back in April 2019 was within normal limits. Coronary virus PCR completed on 06/25/2019 was negative. Echocardiogram showed preserved left ventricular systolic function, no valve abnormality, no evidence of pulmonary hypertension, Persantine stress test was negative for any reversible ischemia. normal, EKG was within normal limits, cardiac enzymes were negative 2 at this hospital. Lower extremity Dopplers were negative 2 hypothyroidism 3 hyperlipidemia 4 hypertension 5 chronic fatigue 6 chronic back pain Plan From cardiology's perspective, [facility] We will make a follow-up appointment in the office post discharge. DNP note has been reviewed, I agree with a documented findings and plan of care. Patient was seen and examined.
--- NOTE | 2019-06-27 23:22 | DS ---
DISCHARGE SUMMARY DATE OF ADMISSION: 06/25/2019 DATE OF DISCHARGE: 06/27/2019 FINAL DIAGNOSES: 1. Shortness of breath, dyspnea, possibly from bronchospasm. 2. Hyperlipidemia. 3. Hypothyroid. 4. Essential hypertension. 5. Chronic bladder prolapse. CONSULTATIONS: 1. Dr. Ornelas from Pulmonary. 2. Dr. Uyen Hollins from Cardiology. HOSPITAL COURSE: This pleasant 69-year-old patient, who did not smoke, presented with shortness of breath and exertional dyspnea for close to 2 months. She was diagnosed with bronchitis and was treated with steroids and antibiotics then. She was not getting better. She presented here. COVID-19 was tested and was negative. CT angiogram was negative for any PE. She denied any recent travels. The patient had a venous Doppler study that was negative for DVT also. Nuclear stress test was negative for any cardiac ischemia. Two-dimensional echocardiogram showed preserved LV function, EF of 55% to 60%. The patient's white count was normal. Troponins were negative. TSH was normal. Care was discussed with the patient today. Further workup by Pulmonary as an outpatient. PHYSICAL EXAMINATION: Temperature 98, pulse 79, respiration 16, blood pressure 126/74, pulse ox 96% on room air. LUNGS: Slightly decreased breath sounds. CARDIOVASCULAR: First and second sounds normal. PSYCH: Alert and oriented x3. DISCHARGE MEDICATIONS: 1. Ventolin HFA 1 puff q.4 p.r.n. 2. Lipitor 20 mg daily. 3. Lidocaine 5% patch daily p.r.n. 4. Omeprazole 20 mg daily. 5. Ditropan XL 10 mg at bedtime. 6. GUIDANCE AND CONTROL SYSTEM ENGINEER Thyroid 120 mg p.o. daily. FOLLOWUP: Follow up with Dr. Uyen Hollins in one week. Follow up with Dr. Ornelas in one week. Follow up with Dr. Anne on 07/01/2019. MMODL / IJN: [id number] /
== END 2019-06-27 13:11 | disposition home or self-care (01) | DRG 203 ==
LOC: EC 21:09 → 3SCARD 21:59 → OBSVTOIN 06-26 13:20
PROVIDERS: ADMIT Hospitalist; ATTEND Hospitalist
DX: J98.01 Acute bronchospasm (principal); I08.1 Rheumatic disorders of both mitral and tricuspid valves; E78.5 Hyperlipidemia, unspecified; I10 Essential (primary) hypertension; M19.90 Unspecified osteoarthritis, unspecified site; Z96.651 Presence of right artificial knee joint; E03.9 Hypothyroidism, unspecified; G89.29 Other chronic pain; M54.9 Dorsalgia, unspecified; R53.1 Weakness; N81.10 Cystocele, unspecified; Z20.828 Contact with and (suspected) exposure to other viral communicable diseases; Z79.899 Other long term (current) drug therapy; Z82.49 Family history of ischemic heart disease and other diseases of the circulatory system; Z88.8 Allergy status to other drugs, medicaments and biological substances
CPT/HCPCS: 78452; 80053; 80061; 84443; 84484; 85025; 87635; 93017; 93306; 93970; 99285

== ENCOUNTER → 2019-07-24 | Outpatient (CLI) | payer MEDICARE, OTHER ==
--- NOTE | 2019-07-24 16:04 | CT ---
EXAMINATION TYPE: CT chest wo con DATE OF EXAM: 07/24/2019 COMPARISON: Chest CT 06/25/2019 HISTORY: Dyspnea CT DLP: 690.20 mGycm. Automated Exposure Control for Dose Reduction was Utilized. TECHNIQUE: CT scan of the thorax is performed without IV contrast. Study performed with high-resolut ion algorithm in a limited fashion to the lungs in both supine and prone positions. FINDINGS: LUNGS: The lungs are remarkable for soft tissue nodule in the lingula, axial image 15 measuring 4 mm, nodular density also present left lower lobe posterior laterally measuring 8 mm.. There is no signif icant bronchiectasis, interlobular septal pleural thickening. There is no pleural effusion or pneumo thorax seen. The tracheobronchial tree is patent. Posterior diaphragmatic hernia present medially on the left contains fat. MEDIASTINUM: Lack of IV contrast is noted to limit evaluation for mediastinal and especially hilar ad enopathy. Left hilar margie calcification is present. There are no definitive greater than 1 cm hilar or mediastinal lymph nodes. No pericardial effusion, the heart is borderline enlarged. OTHER: Postcholecystectomy change is present. There is a small hiatal hernia present. Postop changes are noted the cervical spine. IMPRESSION: Probable old granulomatous disease. Follow-up could be performed to assess for stability of patient's lung nodules. Borderline cardiomegaly. Additional findings above.
[2019-07-25 04:40] LABS: Anti-DNA, DS unit <1.0 IU/mL; Anti-Smith Ab Interp NEGATIVE (NEGATIVE); DNA Double-Stranded NEGATIVE (NEGATIVE)
[2019-07-26 13:22] LABS: Rheumatoid Factor, Qnt 6 IU/mL (0-15)
== END | disposition home or self-care (01) ==
LOC: RADCTMAIN 13:00
PROVIDERS: ATTEND Internal Medicine Critical Care Medicine
DX: R91.1 Solitary pulmonary nodule (principal); R59.0 Localized enlarged lymph nodes; J98.4 Other disorders of lung; R06.00 Dyspnea, unspecified
CPT/HCPCS: 36415; 71250; 82533; 82785; 83519; 85652; 86038; 86225; 86235; 86255; 86431

== ENCOUNTER → 2020-06-12 | Outpatient (CLI) | payer MEDICARE, OTHER ==
--- NOTE | 2020-06-15 10:54 | MM ---
Reason for exam: screening (asymptomatic). Last mammogram was performed 1 year and 11 months ago. History: Patient is postmenopausal and has history of other cancer at age 57. Family history of breast cancer in maternal grandmother, breast cancer in maternal cousin, and breast cancer in paternal grandmother. Benign stereotactic core biopsy of the right breast, June 22, 2001. Benign core biopsy of the right breast, 1969. Benign excisional biopsy of the right breast, 1969. Took estrogen for 1 year. Physical Findings: A clinical breast exam by your physician is recommended on an annual basis and results should be correlated with mammographic findings. MG 3D Screening Mammo W/Cad Bilateral CC and MLO view(s) were taken. Prior study comparison: July 03, 2018, bilateral MG 3d screening mammo w/cad. May 30, 2017, left breast MG 3d work up w/cad LT. The breast tissue is heterogeneously dense. This may lower the sensitivity of mammography. Benign appearing bilateral calcifications. Previous mammotome biopsy in the right breast. There is chronic nodularity in the right breast. No significant changes when compared with prior studies. ASSESSMENT: Benign, BI-RAD 2 RECOMMENDATION: Routine screening mammogram of both breasts in 1 year.
== END | disposition home or self-care (01) ==
LOC: RADMAMWWP 09:42
PROVIDERS: ATTEND Family Medicine
DX: Z12.31 Encounter for screening mammogram for malignant neoplasm of breast (principal); Z80.3 Family history of malignant neoplasm of breast; Z78.0 Asymptomatic menopausal state
CPT/HCPCS: 77063; 77067

== ENCOUNTER → 2021-07-20 | Outpatient (CLI) | payer MEDICARE, OTHER ==
--- NOTE | 2021-07-22 17:47 | MM ---
Reason for Exam: Screening (asymptomatic). Last mammogram was performed 1 year(s) and 2 month(s) ago. Patient History: Menarche at age 14. First Full-Term at age 19. Postmenopausal. Estrogen for 1 year until age 52. 1969, Benign Excisional Biopsy on the right side. 1969, Benign Core Biopsy on the right side. 06/22/2001, Benign Stereotactic Core Biopsy on the right side. Paternal grandmother had breast cancer, age 76. Maternal grandmother had breast cancer, age 76. Maternal cousin had breast cancer, age 34. Risk Values: Argelia 5 year model risk: 1.9%. NCI Lifetime model risk: 5.7%. Prior Study Comparison: 05/30/2017 Left Diagnostic Mammogram, [facility]. 07/03/2018 Bilateral Screening Mammogram, [facility]. 06/12/2020 Bilateral Screening Mammogram, [facility]. Tissue Density: There are scattered fibroglandular densities. Findings: Analyzed By CAD. Core markers within the right breast. Benign vascular calcifications present bilaterally. No suspicious groups of microcalcifications, spiculated or lobular masses, Architectural distortion or other secondary signs of malignancy are mammographically apparent. Overall Assessment: Benign, BI-RAD 2 Management: Screening Mammogram of both breasts in 1 year. A negative mammogram report should not preclude additional follow up of suspicious palpable abnormalities. Patient should continue monthly self breast exam. A clinical breast exam by your physician is recommended on an annual basis and results should be correlated with mammographic findings. Electronically signed and approved by: Nish Lozada D.O. Radiologis
== END | disposition home or self-care (01) ==
LOC: RADMAMWWP 13:38
PROVIDERS: ATTEND Family Medicine
DX: Z12.31 Encounter for screening mammogram for malignant neoplasm of breast (principal); Z78.0 Asymptomatic menopausal state; Z80.3 Family history of malignant neoplasm of breast
CPT/HCPCS: 77063; 77067

== ENCOUNTER → 2022-09-12 | Outpatient (CLI) | payer MEDICARE, OTHER ==
--- NOTE | 2022-09-13 20:36 | MM ---
Reason for Exam: Screening (asymptomatic). Last mammogram was performed 1 year(s) and 1 month(s) ago. Patient History: Menarche at age 14. First Full-Term at age 19. Postmenopausal. Estrogen for 1 year until age 52. 1969, Benign Excisional Biopsy on the right side. 1969, Benign Core Biopsy on the right side. 06/22/2001, Benign Stereotactic Core Biopsy on the right side. Paternal grandmother had breast cancer, age 76. Maternal grandmother had breast cancer, age 76. Maternal cousin had breast cancer, age 34. Risk Values: Argelia 5 year model risk: 1.9%. NCI Lifetime model risk: 5.5%. Prior Study Comparison: 07/03/2018 Bilateral Screening Mammogram, [facility]. 06/12/2020 Bilateral Screening Mammogram, [facility]. 07/20/2021 Bilateral MG 3D screening mammo w/cad, [facility]. Tissue Density: There are scattered fibroglandular densities. Findings: Analyzed By CAD. Microclip right breast from prior biopsy. Benign bilateral vascular calcifications. Unchanged low axillary tail lymph node on the left. There is no suspicious group of microcalcifications or new suspicious mass in either breast. Overall Assessment: Benign, BI-RAD 2 Management: Screening Mammogram of both breasts in 1 year. . Patient should continue monthly self-breast exams. A clinical breast exam by your physician is recommended on an annual basis. This exam should not preclude additional follow-up of suspicious palpable abnormalities. Note on Argelia scores and lifetime risk: 1. A Argelia score greater than 3% is considered moderate risk. If this is the case, consider specialist referral to assess eligibility for a risk reducing agent. 2. If overall lifetime risk for the development of breast cancer is 20% or higher, the patient may qualify for future screening with alternating mammogram and breast MRI. Electronically signed and approved by: Jim Connor M.D. Radiologist
== END | disposition home or self-care (01) ==
LOC: RADMAMWWP 13:47
PROVIDERS: ATTEND Family Medicine
DX: Z12.31 Encounter for screening mammogram for malignant neoplasm of breast (principal); Z78.0 Asymptomatic menopausal state; Z80.3 Family history of malignant neoplasm of breast
CPT/HCPCS: 77063; 77067

== ENCOUNTER → 2023-09-14 | Outpatient (CLI) | payer MEDICARE, OTHER ==
--- NOTE | 2023-10-10 11:47 | MM ---
Reason for Exam: Screening (asymptomatic). Last mammogram was performed 1 year(s) and 1 month(s) ago. Patient History: Menarche at age 14. First Full-Term at age 19. Postmenopausal. Estrogen for 1 year until age 52. 1969, Benign Excisional Biopsy on the right side. 1969, Benign Core Biopsy on the right side. 06/22/2001, Benign Stereotactic Core Biopsy on the right side. Paternal grandmother had breast cancer, age 76. Maternal grandmother had breast cancer, age 76. Maternal cousin had breast cancer, age 34. Risk Values: James 5 year model risk: 1.9%. NCI Lifetime model risk: 5.2%. Prior Study Comparison: 06/12/2020 Bilateral Screening Mammogram, [facility]. 07/20/2021 Bilateral MG 3D screening mammo w/cad, [facility]. 09/12/2022 Bilateral MG 3D screening mammo w/cad, [facility]. Tissue Density: There are scattered areas of fibroglandular density. Findings: Analyzed By CAD. Microclip right breast from prior biopsy. Lacks retail lymph node redemonstrated on the left. Benign bilateral vascular calcifications. No significant change from prior exams. Overall Assessment: Benign, BI-RAD 2 Management: Screening Mammogram of both breasts in 1 year. 1. Screening Mammogram Bilateral in 1 Year . 2. Patient should continue monthly self-breast exams. A clinical breast exam by your physician is recommended on an annual basis. 3. This exam should not preclude additional follow-up of suspicious palpable abnormalities. NOTE ON JAMES SCORES AND LIFETIME RISK: 1. A James score greater than 3% is considered moderate risk. If this is the case, consider specialist referral to assess eligibility for a risk reducing agent. 2. If overall lifetime risk for the development of breast cancer is 20% or higher, the patient may qualify for future screening with alternating mammogram and breast MRI. Electronically signed and approved by: Jim Connor M.D. Radiologist
== END | disposition home or self-care (01) ==
LOC: RADMAMWWP 13:53
PROVIDERS: ATTEND Family Medicine
DX: Z12.31 Encounter for screening mammogram for malignant neoplasm of breast (principal); R92.323 Mammographic fibroglandular density, bilateral breasts; Z78.0 Asymptomatic menopausal state; Z80.3 Family history of malignant neoplasm of breast
CPT/HCPCS: 77063; 77067